=== PATIENT | female | born 2000 | race Caucasian/White ===

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

== ENCOUNTER → 2019-09-22 11:15 | Outpatient (CLI) | payer OTHER, SELFPAY ==
[2019-09-22 11:36] LABS: Basophils % 0.3 % (0.1-2.0); Eosinophils # 0.1 K/mm3 (0.0-0.4); Eosinophils % 1.2 % (0.1-12.0); Hematocrit 40.3 % (37.0-47.0); Hemoglobin 13.1 g/dL (12.2-16.2); Lymphocytes # 2.5 K/mm3 (0.7-4.5); Mean Corpuscular HGB Conc 32.6 g/dL (31.8-35.4); Mean Corpuscular Hemoglobin 27.4 pg (27.0-31.2); Mean Corpuscular Volume 84.1 fl (81-99); Mean Platelet Volume 7.4 fl (7.4-10.4); Monocytes # 0.3 K/mm3 (0.1-1.0); Monocytes % 3.5 % (1.7-9.3); Neutrophils # 5.2 K/mm3 (1.8-7.8); Platelet Count 374 K/mm3 (142-424); Red Blood Count 4.79 M/mm3 (4.20-5.40); Red Cell Distribution Width 14.2 % (11.5-17.5); White Blood Count 8.1 K/mm3 (4.5-13.0)
[2019-09-22 13:02] LABS: Free Thyroxine Index 3.2 ug/dL (5.93-13.13); T4 (Thyroxine) 14.7 ug/dl (5.53-11.0); Triiodothryronine (T3) Uptake 22 % (23.5-40.5)
[2019-09-22 13:15] LABS: Thyroid Stimulating Hormone 3.59 uIU/mL (0.465-4.68)
[2019-09-23 11:29] LABS: Prolactin 8.6 ng/mL (4.8-23.3)
[2019-09-23 13:30] LABS: Estradiol 15.5 pg/mL (.); FSH 2.4 mIU/mL (.); LH 2.9 mIU/mL (.)
[2019-09-25 18:03] LABS: Neisseria gonorrhoeae, NAA Negative (Negative)
== END ==
PROVIDERS: Visit Provider Nurse Practitioner Obstetrics & Gynecology
DX: Z00.00 Encounter for general adult medical examination without abnormal findings (principal); R53.82 Chronic fatigue, unspecified
CPT/HCPCS: 36415; 82670; 83001; 83002; 84146; 84436; 84443; 84479; 85025; 87491; 87591

== ENCOUNTER → 2020-03-01 12:38 | Outpatient (CLI) | payer OTHER, SELFPAY ==
[2020-03-01 13:41] LABS: HCG,Quantitative 1009 mIU/ml (0-5.42)
== END ==
PROVIDERS: Visit Provider Nurse Practitioner Obstetrics & Gynecology
DX: Z32.00 Encounter for pregnancy test, result unknown (principal)
CPT/HCPCS: 36415; 84702

== ENCOUNTER → 2020-03-07 12:12 | Outpatient (CLI) | payer OTHER, SELFPAY ==
[2020-03-07 14:08] LABS: Free Thyroxine Index 2.9 ug/dL (5.93-13.13); T4 (Thyroxine) 12.6 ug/dl (5.53-11.0); Triiodothryronine (T3) Uptake 23 % (23.5-40.5)
[2020-03-07 14:22] LABS: Thyroid Stimulating Hormone 4.05 uIU/mL (0.465-4.68)
[2020-03-07 15:32] LABS: Basophils % 0.3 % (0.1-2.0); Eosinophils # 0.1 K/mm3 (0.0-0.4); Eosinophils % 0.5 % (0.1-12.0); Hematocrit 42.8 % (37.0-47.0); Hemoglobin 13.8 g/dL (12.2-16.2); Lymphocytes # 2.9 K/mm3 (0.7-4.5); Lymphocytes % 22.5 % (10-50); Mean Corpuscular HGB Conc 32.3 g/dL (31.8-35.4); Mean Corpuscular Hemoglobin 27.3 pg (27.0-31.2); Mean Corpuscular Volume 84.6 fl (81-99); Mean Platelet Volume 8.5 fl (7.4-10.4); Monocytes # 0.4 K/mm3 (0.1-1.0); Monocytes % 3.5 % (1.7-9.3); Neutrophils # 9.3 K/mm3 (1.8-7.8); Neutrophils % 73.1 % (37.0-80.0); Platelet Count 452 K/mm3 (142-424); Red Blood Count 5.06 M/mm3 (4.20-5.40); Red Cell Distribution Width 14.7 % (11.5-17.5); White Blood Count 12.7 K/mm3 (4.5-13.0)
[2020-03-09 09:51] LABS: HIV Screen 4th Generation wRfx Non Reactive (Non Reactive); Rubella Antibodies, IgG 2.68 index (Immune >0.99)
[2020-03-09 11:42] LABS: Rapid Plasma Reagin Ab Titer Non Reactive (NonRea<1:1)
[2020-03-09 13:25] LABS: Hepatitis B Surface Antigen Negative (Negative); Hepatitis C Antibody <0.1 s/co ratio (0.0-0.9)
[2020-03-11 07:55] LABS: Neisseria gonorrhoeae, NAA Negative (Negative)
== END ==
PROVIDERS: Visit Provider Nurse Practitioner Obstetrics & Gynecology
DX: Z34.90 Encounter for supervision of normal pregnancy, unspecified, unspecified trimester (principal); E03.9 Hypothyroidism, unspecified
CPT/HCPCS: 36415; 84436; 84443; 84479; 85025; 86592; 86703; 86762; 86850; 87340; 87380; 87491; 87591; G0432

== ENCOUNTER → 2020-03-09 10:26 | Outpatient (CLI) | payer OTHER, SELFPAY ==
--- NOTE | 2020-03-09 10:33 | US_ITS ---
PROCEDURE: US OB <= 14 WEEKS FETUS CLINICAL INDICATION: for dates evaluate dates COMPARISON: US OBBIO US OB biophysical profile from 12/31/2017 FINDINGS: An intrauterine gestational sac is present with a pole with a crown-rump length of 0.33 cm correlating to gestational age of 6 weeks 0 days. heart tones are present with an FHR of 110 BPM. Yolk sac is noted. Unremarkable adnexa IMPRESSION: Live IUP at 6 weeks 0 days. Estimated due date by Ultrasound is 11/02/2020 Dictated by: Bari Finn MD 03/10/2020 13:14 Bari Finn MD in [facility] 03/10/2020 13:14
== END ==
PROVIDERS: PCP Nurse Practitioner Family; Visit Provider Nurse Practitioner Obstetrics & Gynecology
DX: Z34.90 Encounter for supervision of normal pregnancy, unspecified, unspecified trimester (principal)
CPT/HCPCS: 76801

== ENCOUNTER → 2020-04-07 14:49 | Outpatient (CLI) | payer OTHER, SELFPAY | PROVIDERS: PCP Nurse Practitioner Family; Visit Provider Nurse Practitioner Family | DX: Z20.822 Contact with and (suspected) exposure to COVID-19 (principal); Z34.90 Encounter for supervision of normal pregnancy, unspecified, unspecified trimester; Z3A.10 10 weeks gestation of pregnancy | CPT/HCPCS: U0003 ==

== ENCOUNTER → 2020-04-26 11:34 | Outpatient (CLI) | payer OTHER, SELFPAY ==
[2020-04-26 11:58] LABS: Basophils % 0.2 % (0.1-2.0); Eosinophils # 0.1 K/mm3 (0.0-0.4); Eosinophils % 0.5 % (0.1-12.0); Hematocrit 39.8 % (37.0-47.0); Hemoglobin 12.7 g/dL (12.2-16.2); Lymphocytes # 2.6 K/mm3 (0.7-4.5); Lymphocytes % 25.8 % (10-50); Mean Corpuscular HGB Conc 31.8 g/dL (31.8-35.4); Mean Corpuscular Hemoglobin 26.8 pg (27.0-31.2); Mean Corpuscular Volume 84.1 fl (81-99); Mean Platelet Volume 7.9 fl (7.4-10.4); Monocytes # 0.3 K/mm3 (0.1-1.0); Monocytes % 3.2 % (1.7-9.3); Neutrophils # 7.2 K/mm3 (1.8-7.8); Neutrophils % 70.3 % (37.0-80.0); Platelet Count 350 K/mm3 (142-424); Red Blood Count 4.73 M/mm3 (4.20-5.40); Red Cell Distribution Width 13.7 % (11.5-17.5); White Blood Count 10.3 K/mm3 (4.5-13.0)
[2020-04-26 12:44] LABS: Triiodothryronine (T3) Uptake 21 % (23.5-40.5)
[2020-04-26 12:45] LABS: Free Thyroxine Index 3.5 ug/dL (5.93-13.13); T4 (Thyroxine) 16.9 ug/dl (5.53-11.0)
[2020-04-26 12:58] LABS: Thyroid Stimulating Hormone 1.14 uIU/mL (0.465-4.68)
== END ==
PROVIDERS: Visit Provider Nurse Practitioner Obstetrics & Gynecology
DX: O13.9 Gestational [pregnancy-induced] hypertension without significant proteinuria, unspecified trimester (principal); E03.9 Hypothyroidism, unspecified
CPT/HCPCS: 36415; 83880; 84436; 84443; 84479; 85025

== ENCOUNTER → 2020-06-14 10:44 | Outpatient (CLI) | payer OTHER, SELFPAY ==
--- NOTE | 2020-06-14 10:44 | US_ITS ---
PROCEDURE: US OB >= 14 WEEKS FETUS CLINICAL INDICATION: 20 week gestation of Anatomy exam COMPARISON: US US OB <= 14 WEEKS FETUS from 03/09/2020 FINDINGS: There is a single live fetus which is in breech presentation. heart body motion noted. The cervix is closed measuring 4 cm in length. The placenta is anterior in implantation and grade 1. Complete survey performed and was unremarkable on the submitted images as in PACS. No discrete anomalies identified on survey imaging by technologist. Active fetus. Three-vessel cord with satisfactory umbilical cord insertion. 4- chamber heart noted. Survey of brain & ventricles Unremarkable. Face and neck survey unremarkable. Diaphragm and chest views unremarkable. Abdomen: Both kidneys noted and unremarkable. Stomach noted and satisfactory. Spine: Survey of the spine satisfactory with no anomalies identified nor imaged. Both arms and legs noted. Amniotic Fluid: Adequate. Maternal adnexa: No significant findings. Measurements: Average ultrasound age 19weeks 6days. Gestational Age 20weeks Estimated due date by ultrasound age 0911/02/2020. Estimated weight 317g BPD = 20weeks 1day OFD = 20weeks 2days HC = 19weeks 3days AC = 20weeks FL = 19weeks 6days Growth Percentile= 37 percent% Heart Rate = 149bpm Cerebellum = 20weeks 3days Humerus = HC/AC is 1.15 CI is 0.79 FL/BPD is 0.68 FL/AC is 0.22 IMPRESSION: Live IUP in breech presentation with an average ultrasound age of 19 weeks 6 days. No obvious anomalies. Please see above for detail. Dictated by: Bari Finn MD 06/15/2020 09:57 Bari Finn MD in [facility] 06/15/2020 09:57
[2020-06-14 12:33] LABS: Basophils % 0.1 % (0.1-2.0); Eosinophils % 0.3 % (0.1-12.0); Hematocrit 38.8 % (37.0-47.0); Hemoglobin 12.2 g/dL (12.2-16.2); Lymphocytes # 2.6 K/mm3 (0.7-4.5); Lymphocytes % 18.1 % (10-50); Mean Corpuscular HGB Conc 31.5 g/dL (31.8-35.4); Mean Corpuscular Hemoglobin 25.9 pg (27.0-31.2); Mean Corpuscular Volume 82.1 fl (81-99); Mean Platelet Volume 8.2 fl (7.4-10.4); Monocytes # 0.4 K/mm3 (0.1-1.0); Monocytes % 2.9 % (1.7-9.3); Neutrophils # 11.1 K/mm3 (1.8-7.8); Neutrophils % 78.6 % (37.0-80.0); Platelet Count 322 K/mm3 (142-424); Red Blood Count 4.73 M/mm3 (4.20-5.40); Red Cell Distribution Width 13.9 % (11.5-17.5); White Blood Count 14.1 K/mm3 (4.8-10.8)
[2020-06-14 12:38] LABS: D-Dimer 0.84 ug/mL (0.0-0.5)
[2020-06-14 13:10] LABS: Alanine Aminotransferase 10 U/L (12-78); Anion Gap 13.7 mEq/L (5-15); Aspartate Amino Transferase 19 U/L (14-36); Blood Urea Nitrogen 5 mg/dl (7-17); Calcium 9.9 mg/dl (8.4-10.2); Carbon Dioxide 22 mmol/L (22.0-30.0); Chloride 104 mmol/L (98-107); Estimated Glomerular Filt Rate 156 ml/min (>60); GFR (African American) 188 ML/MIN (>60); Glucose 86 mg/dl (74-100); Potassium 4.7 mmoL/L (3.5-5.1); Sodium 135 mmol/L (136-145); Uric Acid 4.5 mg/dl (2.5-6.2)
[2020-06-14 13:23] LABS: Activated Partial Thrombo Time 26.6 seconds (22.8-30.6); Fibrinogen 505 mg/dL (229.9-363.5); INR 0.91 (0.9-1.1); Prothrombin Time 10.8 seconds (10.1-12.5)
== END ==
PROVIDERS: PCP Family Medicine; Visit Provider Nurse Practitioner Obstetrics & Gynecology
DX: Z34.90 Encounter for supervision of normal pregnancy, unspecified, unspecified trimester (principal); Z3A.20 20 weeks gestation of pregnancy
CPT/HCPCS: 36415; 76805; 80048; 84450; 84460; 84550; 85025; 85378; 85384; 85610; 85730

== ENCOUNTER → 2020-06-14 11:50 | Outpatient (CLI) | payer OTHER, SELFPAY | PROVIDERS: Visit Provider Nurse Practitioner Obstetrics & Gynecology | DX: Z34.90 Encounter for supervision of normal pregnancy, unspecified, unspecified trimester (principal) | CPT/HCPCS: 36415; 80048; 84450; 84460; 84550; 85025; 85378; 85384; 85610; 85730 ==

== ENCOUNTER → 2020-06-16 11:04 | Outpatient (CLI) | payer OTHER, SELFPAY ==
[2020-06-16 12:53] LABS: Collection Time,Urine 24 hours; Total Volume,Urine 2400 mL (600-1600)
[2020-06-16 13:21] LABS: Creatinine 24 Hour,Urine 2160 mg/24hr (630-2500); Creatinine,Urine Random 90 mg/dL (Not Estab.); Patient Height,Urine 71 inches; Patient Weight,Urine 350 lbs
[2020-06-16 13:22] LABS: Creatinine Clearance Urine 243.3 mL/min (25-115); Total Protein 24 Hour,Urine 24 mg/24 hr (40-90)
== END ==
PROVIDERS: Visit Provider Nurse Practitioner Obstetrics & Gynecology
DX: O13.9 Gestational [pregnancy-induced] hypertension without significant proteinuria, unspecified trimester (principal)
CPT/HCPCS: 82575; 84155

== ENCOUNTER → 2020-07-14 10:17 | Outpatient (CLI) | payer OTHER, SELFPAY ==
[2020-07-14 10:44] LABS: Basophils % 0.2 % (0.1-2.0); Eosinophils # 0.1 K/mm3 (0.0-0.4); Eosinophils % 0.5 % (0.1-12.0); Hemoglobin 12.7 g/dL (12.2-16.2); Lymphocytes # 2.5 K/mm3 (0.7-4.5); Lymphocytes % 16.9 % (10-50); Mean Corpuscular HGB Conc 32.5 g/dL (31.8-35.4); Mean Corpuscular Hemoglobin 26.7 pg (27.0-31.2); Mean Corpuscular Volume 82.2 fl (81-99); Monocytes # 0.5 K/mm3 (0.1-1.0); Monocytes % 3.1 % (1.7-9.3); Neutrophils % 79.5 % (37.0-80.0); Platelet Count 332 K/mm3 (142-424); Red Blood Count 4.74 M/mm3 (4.20-5.40); Red Cell Distribution Width 14.7 % (11.5-17.5); White Blood Count 15.1 K/mm3 (4.8-10.8)
[2020-07-14 10:53] LABS: MANUAL DIFFERENTIAL MANUAL DIFFERENTIAL (MANUAL DIFF)
[2020-07-14 11:05] LABS: D-Dimer 0.81 ug/mL (0.0-0.5)
[2020-07-14 11:10] LABS: Activated Partial Thrombo Time 25.6 seconds (22.8-30.6); Fibrinogen 505 mg/dL (229.9-363.5); INR 0.87 (0.9-1.1); Prothrombin Time 10.4 seconds (10.1-12.5)
[2020-07-14 11:30] LABS: Potassium 4.6 mmoL/L (3.5-5.1); Sodium 137 mmol/L (136-145)
[2020-07-14 11:31] LABS: Alanine Aminotransferase 12 U/L (12-78); Anion Gap 11.6 mEq/L (5-15); Aspartate Amino Transferase 16 U/L (14-36); Blood Urea Nitrogen 6 mg/dl (7-17); Calcium 9.5 mg/dl (8.4-10.2); Carbon Dioxide 24 mmol/L (22.0-30.0); Chloride 106 mmol/L (98-107); Estimated Glomerular Filt Rate 156 ml/min (>60); GFR (African American) 188 ML/MIN (>60); Glucose 93 mg/dl (74-100); Uric Acid 4.4 mg/dl (2.5-6.2)
[2020-07-14 12:47] LABS: Eosinophils % 2 % (0-3); Lymphocytes % 16 % (10-50); Monocytes % 3 % (2-9); Neutrophils % 76 % (42-76); Total Cells Counted 100
[2020-07-14 12:48] LABS: Microcytosis 1+; Platelet Estimate Normal
== END ==
PROVIDERS: Visit Provider Nurse Practitioner Obstetrics & Gynecology
DX: Z34.90 Encounter for supervision of normal pregnancy, unspecified, unspecified trimester (principal)
CPT/HCPCS: 80048; 84450; 84460; 84550; 85007; 85025; 85378; 85384; 85610; 85730

== ENCOUNTER → 2020-07-16 10:14 | Outpatient (CLI) | payer OTHER, SELFPAY ==
[2020-07-16 13:19] LABS: Collection Time,Urine 24 hours; Total Volume,Urine 2250 mL (600-1600)
[2020-07-16 13:23] LABS: Total Protein 24 Hour,Urine 248 mg/24 hr (40-90)
[2020-07-16 13:25] LABS: Creatinine 24 Hour,Urine 2228 mg/24hr (630-2500); Creatinine,Urine Random 99 mg/dL (Not Estab.)
== END ==
PROVIDERS: Visit Provider Nurse Practitioner Obstetrics & Gynecology
DX: Z34.90 Encounter for supervision of normal pregnancy, unspecified, unspecified trimester (principal)
CPT/HCPCS: 82570; 84155

== ENCOUNTER → 2020-07-22 12:33 | Outpatient (CLI) | payer OTHER, SELFPAY | PROVIDERS: PCP Nurse Practitioner Family; Visit Provider Internal Medicine Cardiovascular Disease | DX: R07.9 Chest pain, unspecified (principal); R06.00 Dyspnea, unspecified; R00.0 Tachycardia, unspecified; R00.2 Palpitations | CPT/HCPCS: 93270 ==

== ENCOUNTER → 2020-08-02 13:33 | Outpatient (CLI) | payer OTHER, SELFPAY ==
--- NOTE | 2020-08-02 13:33 | CA_ITS ---
APPROVED REPORT EXAM: Comprehensive 2D, Doppler, and color-flow Echocardiogram Printer Technician: Nayla Viera CRT Ht: 5 ft 11 in Wt: 360lbs BSA: 2.71 BP: 131/88 mmHg Indications: Chest Pain, Palpitations, Hypertension/HDD, 25 weeks , asthma hx of iv drug use 2D Dimensions LVOT 2.19 cm (M/F) 1.5-2.5 LA Volume 52.30 mL LA Volume Index 19.30 mL/m2 (M/F) 16-34 M-Mode Dimensions RVDd 2.59 cm (0.9-2.6) LA Diam 4.05 cm (1.9-4.0) LVDd 5.35 cm (3.5-5.7) Ao Diam 3.78 cm (2.0-3.7) LVDs 3.93 cm (3.5-5.7) IVSd 1.52 cm (0.6-1.1) PWd 0.95 cm (0.6-1.1) EF (Teich) 51.50% FS 26.50% EDV (Teich) 138.30 mL TAPSE 1.53 (<1.7) ESV (Teich) 67.10 mL LV Diastology E Decel Time 150.00 (160-240 msec) E/A Ratio 0.76 MED E' 3.40 (< 7 cm/sec) MED A' 14.50 cm/s E'/MED E' Ratio 19.41 (>14) LAT E' 13.60 (<10 cm/sec) LAT A' 6.80 cm/s E/LAT E' Ratio 4.85 (>14) Aortic Valve AO Peak GR. 8.20 mmHg Mitral Valve MV E Max Carlos. 66.00 (40-130 cm/s) MV A Velocity 87.00 (40-130 cm/s) E/A Ratio 0.76 MV Decel. Time 150.00 (160-240 ms) MV PHT 44.00 ms Pulmonary Valve PV Peak Velocity 77.00 (50-150 cm/s) Tricuspid Valve TR P. Velocity 214.00 cm/s RAP Estimate 10.00 mmHg RVSP 28.30 mmHg Left Ventricle Left atrium is normal size, left ventricle is normal size, there is no concentric left ventricular hypertrophy, visually estimated ejection fraction 55% with no regional wall motion abnormality, diastolic parameters are inconclusive in the study. Right Ventricle Right atrium and right ventricle are normal size and contractility. Aortic Valve Aortic valve is grossly normal, there is no aortic stenosis or aortic insufficiency. Mitral Valve Mitral valve grossly normal, there is trace mitral regurgitation. Tricuspid Valve Tricuspid grossly normal, there is trace tricuspid regurgitation, tricuspid regurgitation jet close is inadequate for calculation of the right ventricular systolic pressure. Pulmonic Valve Pulmonic valve is poorly visualized. Great Vessels Aortic root is normal size. Pericardium No significant pericardial effusion noted. Conclusion 1. Normal left ventricular size, preserved left ventricular systolic function, visually estimated ejection fraction 55% with no regional wall motion abnormality, diastolic parameters are inconclusive in the study. 2. Trace mitral and tricuspid regurgitation. 3. No significant pericardial effusion noted. Electronically signed by : Pankaj Contreras, 08/02/2020 18:43:21
== END ==
PROVIDERS: PCP Nurse Practitioner Family; Visit Provider Internal Medicine Cardiovascular Disease
DX: R06.00 Dyspnea, unspecified (principal); R07.9 Chest pain, unspecified; R00.0 Tachycardia, unspecified; R00.2 Palpitations
CPT/HCPCS: 93306

== ENCOUNTER → 2020-08-03 11:26 | Outpatient (CLI) | payer OTHER, SELFPAY ==
[2020-08-03 12:17] LABS: Glucose,Fasting 93 mg/dl (74-100)
[2020-08-03 13:31] LABS: Glucose 1 Hour 113 mg/dL (74-100)
== END ==
PROVIDERS: Visit Provider Nurse Practitioner Obstetrics & Gynecology
DX: Z34.90 Encounter for supervision of normal pregnancy, unspecified, unspecified trimester (principal)
CPT/HCPCS: 36415; 82951

== ENCOUNTER 2020-09-09 10:26 | Outpatient (CLI) | payer OTHER, SELFPAY ==
[2020-09-09 10:42] VITALS: BMI 51.2
[2020-09-09 10:45] VITALS: BP 116/77; PULSE 120; RESP 18; TEMP 37; O2SAT 97; BMI 51.2
[2020-09-09 11:19] LABS: Basophils % 0.2 % (0.1-2.0); Eosinophils # 0.1 K/mm3 (0.0-0.4); Eosinophils % 0.9 % (0.1-12.0); Hematocrit 36.2 % (37.0-47.0); Lymphocytes # 2.5 K/mm3 (0.7-4.5); Lymphocytes % 19.3 % (10-50); Mean Corpuscular Hemoglobin 25.7 pg (27.0-31.2); Mean Corpuscular Volume 77.8 fl (81-99); Mean Platelet Volume 8.6 fl (7.4-10.4); Monocytes # 0.4 K/mm3 (0.1-1.0); Neutrophils # 9.9 K/mm3 (1.8-7.8); Neutrophils % 76.6 % (37.0-80.0); Platelet Count 331 K/mm3 (142-424); Red Blood Count 4.66 M/mm3 (4.20-5.40); Red Cell Distribution Width 14.5 % (11.5-17.5)
[2020-09-09 11:25] VITALS: BP 135/74; PULSE 102
[2020-09-09 11:36] LABS: Activated Partial Thrombo Time 25.9 seconds (22.8-30.6); Prothrombin Time 10.5 seconds (10.1-12.5)
[2020-09-09 11:37] LABS: D-Dimer 0.89 ug/mL (0.0-0.5)
[2020-09-09 11:38] LABS: INR 0.88 (0.9-1.1)
[2020-09-09 11:45] VITALS: BP 138/69; PULSE 93
[2020-09-09 11:54] LABS: Fibrinogen 500 mg/dL (208.1-352.0)
[2020-09-09 12:38] LABS: Alanine Aminotransferase 14 U/L (12-78); Anion Gap 14.1 mEq/L (5-15); Aspartate Amino Transferase 28 U/L (14-36); Blood Urea Nitrogen 6 mg/dl (7-17); Calcium 8.7 mg/dl (8.4-10.2); Carbon Dioxide 21 mmol/L (22.0-30.0); Chloride 105 mmol/L (98-107); Creatinine Clearance Estimated 249 mL/min (50-200); Estimated Glomerular Filt Rate 201 ml/min (>60); GFR (African American) 244 ML/MIN (>60); Glucose 88 mg/dl (74-100); Potassium 4.1 mmoL/L (3.5-5.1); Sodium 136 mmol/L (136-145); Uric Acid 4.6 mg/dl (2.5-6.2)
== END 2020-09-09 12:55 | disposition home or self-care (01) ==
LOC: OBOUT 10:27 → OB 10:27
PROVIDERS: PCP Nurse Practitioner Family; Visit Provider Nurse Practitioner Obstetrics & Gynecology
DX: O47.03 False labor before 37 completed weeks of gestation, third trimester (principal); Z3A.32 32 weeks gestation of pregnancy
CPT/HCPCS: 59025; 80048; 84450; 84460; 84550; 85025; 85378; 85384; 85610; 85730; G0463

== ENCOUNTER 2020-09-21 09:05 | Outpatient (CLI) | payer OTHER, SELFPAY ==
[2020-09-21 09:34] VITALS: BP 114/54; PULSE 106; RESP 20; TEMP 37; O2SAT 97; BMI 51.4
== END 2020-09-21 09:52 | disposition home or self-care (01) ==
LOC: OB 09:42 → OBOUT 09-22 12:17
PROVIDERS: PCP Nurse Practitioner Family; Visit Provider Nurse Practitioner Obstetrics & Gynecology
DX: O13.9 Gestational [pregnancy-induced] hypertension without significant proteinuria, unspecified trimester (principal); Z3A.34 34 weeks gestation of pregnancy
CPT/HCPCS: 59025; G0378; G0463

== ENCOUNTER 2020-09-26 12:59 | Outpatient (CLI) | payer OTHER, SELFPAY ==
[2020-09-26 13:10] VITALS: BP 131/85; PULSE 96; RESP 20; TEMP 37.3; O2SAT 98; BMI 51.4
[2020-09-26 13:27] VITALS: BMI 51.4
--- NOTE | 2020-09-26 13:33 | ECG_ITS ---
APPROVED REPORT Exam: Resting ECG HR:102 bpm ECG Measurements Heart Rate 102 AXES IL 142 P 55 QRSd 80 QRS 62 QT 356 T 29 QTc 463 Conclusion Sinus tachycardia with occasional premature ventricular complexes Otherwise normal ECG Electronically signed by : Roberto Henderson, 09/27/2020 17:02:32
[2020-09-26 13:35] LABS: Basophils % 0.2 % (0.1-2.0); Eosinophils # 0.1 K/mm3 (0.0-0.4); Eosinophils % 0.4 % (0.1-12.0); Hematocrit 38.1 % (37.0-47.0); Hemoglobin 12.1 g/dL (12.2-16.2); Lymphocytes # 2.2 K/mm3 (0.7-4.5); Lymphocytes % 15.6 % (10-50); Mean Corpuscular HGB Conc 31.7 g/dL (31.8-35.4); Mean Corpuscular Hemoglobin 25.1 pg (27.0-31.2); Mean Corpuscular Volume 79.2 fl (81-99); Mean Platelet Volume 8.1 fl (7.4-10.4); Monocytes # 0.4 K/mm3 (0.1-1.0); Monocytes % 3.2 % (1.7-9.3); Neutrophils # 11.2 K/mm3 (1.8-7.8); Neutrophils % 80.5 % (37.0-80.0); Platelet Count 341 K/mm3 (142-424); Red Blood Count 4.81 M/mm3 (4.20-5.40); Red Cell Distribution Width 14.1 % (11.5-17.5); White Blood Count 13.9 K/mm3 (4.8-10.8)
[2020-09-26 13:44] LABS: Activated Partial Thrombo Time 26.5 seconds (22.8-30.6); INR 0.88 (0.9-1.1); Prothrombin Time 10.5 seconds (10.1-12.5)
[2020-09-26 13:48] LABS: Anion Gap 10.6 mEq/L (5-15); Carbon Dioxide 23 mmol/L (22.0-30.0); Chloride 106 mmol/L (98-107); Potassium 4.6 mmoL/L (3.5-5.1); Sodium 135 mmol/L (136-145)
[2020-09-26 13:49] LABS: Alanine Aminotransferase 14 U/L (12-78); Aspartate Amino Transferase 24 U/L (14-36); Blood Urea Nitrogen 7 mg/dl (7-17); Calcium 9.1 mg/dl (8.4-10.2); Creatinine Clearance Estimated 249 mL/min (50-200); Estimated Glomerular Filt Rate 201 ml/min (>60); GFR (African American) 244 ML/MIN (>60); Glucose 82 mg/dl (74-100)
[2020-09-26 13:56] LABS: D-Dimer 0.61 ug/mL (0.0-0.5)
[2020-09-26 14:30] LABS: Fibrinogen 635 mg/dL (229.9-363.5)
== END 2020-09-26 14:20 | disposition home or self-care (01) ==
LOC: OBOUT 13:03 → OB 13:05
PROVIDERS: PCP Nurse Practitioner Family; Visit Provider Nurse Practitioner Obstetrics & Gynecology
DX: O13.2 Gestational [pregnancy-induced] hypertension without significant proteinuria, second trimester (principal); Z3A.34 34 weeks gestation of pregnancy
CPT/HCPCS: 59025; 80048; 84450; 84460; 84550; 85025; 85378; 85384; 85610; 85730; 93005; G0463

== ENCOUNTER → 2020-09-30 14:30 | Outpatient (CLI) | payer OTHER, SELFPAY | PROVIDERS: Visit Provider Nurse Practitioner Obstetrics & Gynecology | DX: Z34.90 Encounter for supervision of normal pregnancy, unspecified, unspecified trimester (principal) | CPT/HCPCS: 86403; 87186 ==

== ENCOUNTER → 2020-10-04 10:32 | Outpatient (CLI) | payer OTHER, SELFPAY ==
--- NOTE | 2020-10-04 | ECG_ITS ---
APPROVED REPORT Exam: Resting ECG HR:130 bpm ECG Measurements Heart Rate 130 AXES NJ 130 P 66 QRSd 80 QRS 65 QT 304 T 55 QTc 447 Conclusion Sinus tachycardia with occasional premature ventricular complexes and fusion complexes Otherwise normal ECG Electronically signed by : Roberto Henderson MD 10/07/2020 11:41:33
== END ==
PROVIDERS: PCP Nurse Practitioner Family; Visit Provider Nurse Practitioner Obstetrics & Gynecology
DX: Z01.810 Encounter for preprocedural cardiovascular examination (principal)
CPT/HCPCS: 93005

== ENCOUNTER 2020-10-10 04:37 | Inpatient (IN) | payer OTHER, SELFPAY ==
[2020-10-10 04:51] VITALS: BMI 51.8
[2020-10-10 05:51] LABS: Coronavirus 19, PCR Not Detected (NotDetected); Influenza A, PCR Not Detected (NotDetected); Influenza B, PCR Not Detected (NotDetected); Microscopic, Urine URINE MICROSCOPIC (MICROSCOPIC)
[2020-10-10 06:07] LABS: Basophils # 0.1 K/mm3 (0-0.2); Basophils % 0.8 % (0.1-2.0); Eosinophils # 0.1 K/mm3 (0.0-0.4); Eosinophils % 0.8 % (0.1-12.0); Hematocrit 33.9 % (37.0-47.0); Hemoglobin 11.2 g/dL (12.2-16.2); Lymphocytes # 3.7 K/mm3 (0.7-4.5); Lymphocytes % 27.4 % (10-50); Mean Corpuscular HGB Conc 33.2 g/dL (31.8-35.4); Mean Corpuscular Hemoglobin 25.6 pg (27.0-31.2); Mean Corpuscular Volume 77.2 fl (81-99); Mean Platelet Volume 8.9 fl (7.4-10.4); Monocytes # 0.5 K/mm3 (0.1-1.0); Platelet Count 326 K/mm3 (142-424); Red Blood Count 4.39 M/mm3 (4.20-5.40); Red Cell Distribution Width 15.3 % (11.5-17.5); White Blood Count 13.5 K/mm3 (4.8-10.8)
[2020-10-10 06:09] LABS: Appearance,Urine CLEAR (Clear); Bilirubin,Urine Negative (Negative); Blood, Urine Negative (Negative); Color,Urine YELLOW (Yellow); Glucose,Urine (UA) Negative (Negative); Ketones,Urine Negative (Negative); Leukocyte Esterase,Urine Negative (Negative); Nitrate,Urine Negative (Negative); PH,Urine 6.5 (5.0-8.5); Protein,Urine Negative (Negative); Urobilinogen,Urine 0.2 EU/dl (0.2)
[2020-10-10 06:21] LABS: Benzodiazepines Screen,Urine Negative ng/ml (<200)
[2020-10-10 06:22] LABS: Amphetamine/Metha Screen,Urine Negative ng/ml (<1000)
[2020-10-10 06:23] LABS: Barbiturates Screen,Urine Negative ng/ml (<200); Cannabinoid Screen,Urine Negative ng/ml (<50)
[2020-10-10 06:24] LABS: Cocaine Screen,Urine Negative ng/ml (<300); Methadone Screen,Urine Negative ng/ml (<300)
[2020-10-10 06:25] LABS: Opiate Screen,Urine Negative ng/ml (<300)
[2020-10-10 06:26] LABS: Phencyclidine Screen,Urine Negative ng/ml (<25)
[2020-10-10 06:27] VITALS: BP 90/57; PULSE 122; RESP 20; TEMP 37.1; O2SAT 98; BMI 51.8
[2020-10-10 06:27] LABS: Calcium Oxalate Crystals,Urine 1+ /lpf
[2020-10-10 06:28] LABS: Squamous Epithelial Cell,Urine Occasional #/hpf (0-5); WBC,Urine Occasional #/hpf (0-3)
--- NOTE | 2020-10-10 07:15 | HMH.PHAINT ---
MEDICATION RECONCILIATION COMPLETED ON PATIENT USING EXTERNAL FILL HISTORY FROM PHARMACY AND LIST FROM DR. FLORES'S OFFICE. -DANAY WHITE, JANICED
--- NOTE | 2020-10-10 07:59 | HMH.PHACONS ---
- Pharmacy Consult Date: 10/10/20 Time: 07:59 Referring provider: DR. FLORES Reason for Consult:: VANCOMYCIN DOSING Allergies and ADEs:: Allergies Allergy/AdvReac Type Severity Reaction Status Date / Time amoxicillin Allergy Unknown Verified 10/07/20 12:15 cefaclor Allergy Unknown Verified 10/07/20 12:15 Penicillins Allergy Unknown Verified 10/07/20 12:15 Home Medications:: Home Medications Medication Instructions Recorded Confirmed Type vits no.130-ferrous fum 1 tab PO DAILY tab 07/22/20 10/10/20 History 27 mg iron-folic acid 800 mcg tablet Ferrous Sulfate 325 mg PO DAILY 09/09/20 10/10/20 History Labetalol HCl 400 mg PO BID 09/09/20 10/10/20 History nifedipine 90 mg tablet,extended 90 mg PO DAILY tab 09/16/20 10/10/20 History release 24 hr Height: 1.8 m Weight: 168.736 kg Laboratory Results:: Laboratory Results - last 24 hr 10/10/20 05:00: WBC 13.5 H, RBC 4.39, Hgb 11.2 L, Hct 33.9 L, MCV 77.2 L, MCH 25.6 L, MCHC 33.2, RDW 15.3, Plt Count 326, MPV 8.9, Neut % (Auto) 67.0, Lymph % (Auto) 27.4, [place] % (Auto) 4.0, Eos % (Auto) 0.8, Baso % (Auto) 0.8, Neut # (Auto) 9.0 H, Lymph # (Auto) 3.7, [place] # (Auto) 0.5, Eos # (Auto) 0.1, Baso # (Auto) 0.1 10/10/20 05:00: Urine Color Yellow, Urine Appearance Clear, Urine pH 6.5, Ur Specific [place] 1.020, Urine Protein Negative, Urine Glucose (UA) Negative, Urine Ketones Negative, Urine Blood Negative, Urine Nitrate Negative, Urine Bilirubin Negative, Urine Urobilinogen 0.2, Ur Leukocyte Esterase Negative, Urine RBC None, Urine WBC Occasional, Ur Squamous Epith Cells Occasional, Calcium Oxalate Crystal 1+, Urine Bacteria None 10/10/20 05:00: Urine Opiates Screen Negative, Urine Methadone Screen Negative, Ur Barbituates Screen Negative, Ur Phencyclidine Scrn Negative, Ur Amphetamines Screen Negative, U Benzodiazepines Scrn Negative, Urine Cocaine Screen Negative, U Marijuana (THC) Screen Negative 10/10/20 05:00: Blood Type A Positive, Antibody Screen Negative 10/10/20 05:00: SARS-CoV-2 (PCR) Not detected, Influenza A Untype (PCR) Not detected, Influenza Type B (PCR) Not detected Medical History: Reports:: Anxiety, Asthma, Depression, Hypertension, Palpitations Denies:: Diabetes Mellitus Type 1, Seizures Assessment and Plan - Assessment and plan all Dx Assessment and Plan for all problems:: Age: 20 yo Serum creatinine: 0.6 mg/dL Height: 70.9 Inches Weight (kg): 168.7 Assessment: IBW (kg): 70.57 Dosing wt(kg): 168.7 Estimated Creatinine clearance (ml/min): 130 Clearance limited to 130 ml/min to reduce risk of overdosing. CRCL method: Cockcroft and Gault using ibw(default). Drug selected: Vancomycin Loading dose (mg): 0 Vd (liters): 135.0 (factor used: 0.8 L/kg) Koby (hr-1): 0.112 Half life (hrs): 6.19 Recommended dose: 2500 mg Interval: 8 hrs Infusion time (hrs): 2.0 Predicted peak (mcg/mL): 28.0 Predicted trough (mcg/mL): 14.30 Total body weight is being used for vancomycin dosing. Recommendations: Give Vancomycin 2500 mg q 8 hrs with an expected Cpeak of 28.0 mcg/ml and an expected Ctrough of 14.30 mcg/ml ----Vanco only - ignore for aminoglycosides----- CLvanco= 15.12 L/hr AUC 0-24 /SHARMILA Data: SHARMILA 0.5 mcg/mL: AUC/SHARMILA: 992.1 SHARMILA 1.0 mcg/mL: AUC/SHARMILA: 496.0 --------- SHARMILA 1.5 mcg/mL: AUC/SHARMILA: 330.7 SHARMILA 2.0 mcg/mL: AUC/SHARMILA: 248.0 Thank you for the consult, will continue to follow.
[2020-10-10 08:00] VITALS: BP 127/70; PULSE 105; RESP 18; TEMP 37.2; O2SAT 99
--- NOTE | 2020-10-10 09:50 | HMH.LABNOT ---
Labor Note - Subjective: Date: 10/10/20 Time: 09:50 regular contraction - Objective: NST:: Reactive Contractions:: every 2-3 minutes Cervical Dilation:: 3 Effacement:: 75% Station: -3 Membranes: artificially ruptured - Fetus: Monitoring?: Yes monitoring type:: Internal Comment:: I inserted an IUPC as well as a scalp clip. - Assessment: Labor progressing?: Yes Cephalopelvic disproportion?: No Patient Problems: All Active Problems (Last Updated 09/30/20 @ 09:41 by MANSI Rosas) Chronic hypertension affecting (Acute) Dyspnea (Chronic) Chest pain (Acute) Palpitations (Chronic) Tachycardia (Chronic) High blood pressure affecting in third trimester, antepartum (Chronic) induced hypertension, antepartum (Acute) Abdominal pain (Acute) Asthma complicating , antepartum (Chronic) Obesity, morbid, BMI 40.0-49.9 (Chronic) Intrauterine in teenager (Chronic) (Chronic) - Plan: Anesthesia for epidural?: Yes Continue to labor down?: Yes Plan for ?: No Continue to monitor?: Yes Start pushing?: No
--- NOTE | 2020-10-10 10:10 | HMH.OBAPHP ---
OB - H&P: HPI Antepartum - History of Present Illness Chief complaint: Chronic hypertension, morbid obesity, small for gestational age History of present illness: She is a 20-year-old 2 para 1 at 37 weeks gestational age. She is been followed by ms and [facility] high risk for a small for gestational age . She also has difficult to control chronic hypertension. We have had to increase the medication recently. We have now stabilized her blood pressure. As result of the small for gestational age and chronic hypertension we are delivering her at 37 weeks. - History of Present Criteria for establishing EDC:: LMP confirmed by 1st trimester US care: good care Ultrasounds: normal 1st trimester US, normal mid trimester US Obstetrical complications: gestational hypertension, growth restriction - Labs Rubella: immune RPR/VDRL: nonreactive GBS status: positive HBsAG: negative [facility] History I have reviewed the patient's past medical history: Yes Medical History: Reports:: Anxiety, Asthma, Depression, Hypertension, Palpitations Denies:: Diabetes Mellitus Type 1, Seizures *Have you ever received a pneumonia vaccine?: No *Have you received a flu vaccine this season?: No Other Medical History: Reports: Hypothyroidism Laterality Cases: Bilateral: Tonsillectomy Other Surgeries: Yes: No Previous Surgery. No: Amputation: No Fractures: No - *Social History Smoking Status: Never smoker Alcohol Intake: never Alcohol Intake Frequency:: other Substance Use Type: denies use, former substance user, heroin, IV drugs *Occupational Status:: unemployed Housing: house Household Members: family *Travel in the last 8 weeks: None - Psychiatric History Pschychiatric History:: Reports:: Anxiety, Depression Family Hx:: Hypertension, Substance abuse Para: 1 Review of Systems - Review of Systems Review of systems:: pertinent systems reviewed and negative unless documented below Meds Home Medications Medication Instructions Recorded Confirmed Type vits no.130-ferrous fum 1 tab PO DAILY tab 07/22/20 10/10/20 History 27 mg iron-folic acid 800 mcg tablet Ferrous Sulfate 325 mg PO DAILY 09/09/20 10/10/20 History Labetalol HCl 400 mg PO BID 09/09/20 10/10/20 History nifedipine 90 mg tablet,extended 90 mg PO DAILY tab 09/16/20 10/10/20 History release 24 hr Allergies Allergy/AdvReac Type Severity Reaction Status Date / Time amoxicillin Allergy Unknown Verified 10/07/20 12:15 cefaclor Allergy Unknown Verified 10/07/20 12:15 Penicillins Allergy Unknown Verified 10/07/20 12:15 OB - H&P: Exam - Physical Exam Vital signs: Temp Pulse Resp BP Pulse Ox 98.9 F 105 H 18 127/70 99 10/10/20 08:00 10/10/20 08:00 10/10/20 08:00 10/10/20 08:00 10/10/20 08:00 - Constitutional no acute distress - Routine HEENT Exam Head: Present: normocephalic Eye: Present: EOMI, PERRL ENT: Present: mucous membranes moist - Routine Neck Exam Present: supple, full ROM - Routine Respiratory Exam Absent: accessory muscle use (good air entry bilaterally), respiratory distress, wheezes, crackles - Routine Cardiovascular Exam Present: RRR. Absent: murmur - Routine Abdominal Exam Present: soft, normoactive bowel sounds. Absent: tenderness, distended, guarding - Routine Rectal Exam Patient deferred: visual exam, digital exam - Routine Exam Patient deferred: external exam, groin exam, perineal exam - Routine Extremities Exam Present: full ROM. Absent: cyanosis, edema - Routine Skin Exam Present: intact. Absent: cyanosis - Routine Neurological Exam Present: alert, oriented X3 - Routine Psychiatric Exam Present: normal affect OB - Results - Labs Labs: Short CBC 10/10/20 Range/Units 05:00 WBC 13.5 H (4.8-10.8) K/mm3 Hgb 11.2 L (12.2-16.2) g/dL Hct 33.9 L (37.0-47.0) % Plt Count 326 (142-424) K/mm3 Urin
--- NOTE | 2020-10-10 10:51 | HMH.ANESCL ---
[facility] Anesthesia Checklist - Patient Identification Patient Identification: Arm Band - Structural Data Admitted From: Inpatient Planned Operative Procedure/s: labor epidural Consent for Planned Operative Procedure(s) Verified: Yes Verified Documents: Surgical Consent, History and Physical - NPO Status Verified Time NPO: 00:00 - Additional verifications Anesthesia Reactions: No - Airway Assessment C-Spine Mobility Assessed: Yes TMJ Mobility Assessed: Yes Dentition: Good Dentition - Neurological Assessment Level of Consciousness: Awake, Alert - Anesthesia Plan Anesthesia Risk discussed: Yes Anesthesia Plan: Verified ASA Class: III Anesthesia Type: Epidural [facility] History I have reviewed the patient's past medical history: Yes Medical History: Reports:: Anxiety, Asthma, Depression, Hypertension, Palpitations Denies:: Diabetes Mellitus Type 1, Seizures *Have you ever received a pneumonia vaccine?: No *Have you received a flu vaccine this season?: No Other Medical History: Reports: Hypothyroidism Anesthesia experience/problems:: nac Laterality Cases: Bilateral: Tonsillectomy Other Surgeries: No: Amputation: No Fractures: No - *Social History Smoking Status: Never smoker Alcohol Intake: never Alcohol Intake Frequency:: other Substance Use Type: denies use, former substance user, heroin, IV drugs *Occupational Status:: unemployed Housing: house Household Members: family *Travel in the last 8 weeks: None - Psychiatric History Pschychiatric History:: Reports:: Anxiety, Depression Family Hx:: Hypertension, Substance abuse Para: 1
--- NOTE | 2020-10-10 11:44 | HMH.LABNOT ---
Labor Note - Subjective: Date: 10/10/20 Time: 11:15 regular contraction - Objective: NST:: Reactive Contractions:: every 2-3 minutes Cervical Dilation:: 4 Effacement:: 90% Station: -1 Membranes: artificially ruptured - Fetus: Monitoring?: Yes monitoring type:: Internal - Assessment: Labor progressing?: Yes Cephalopelvic disproportion?: No Patient Problems: All Active Problems (Last Updated 09/30/20 @ 09:41 by MANSI Rosas) IUGR (intrauterine growth restriction) affecting care of mother (Acute) Chronic hypertension affecting (Acute) Dyspnea (Chronic) Chest pain (Acute) Palpitations (Chronic) Tachycardia (Chronic) High blood pressure affecting in third trimester, antepartum (Chronic) induced hypertension, antepartum (Acute) Abdominal pain (Acute) Asthma complicating , antepartum (Chronic) Obesity, morbid, BMI 40.0-49.9 (Chronic) Intrauterine in teenager (Chronic) (Chronic) - Plan: Anesthesia for epidural?: Yes Continue to labor down?: Yes Plan for ?: No Continue to monitor?: Yes Start pushing?: No Additional information:: She continues to do well. She has changed her cervix. She has internal monitors. We'll expect a vaginal delivery.
[2020-10-10 12:29] VITALS: BP 114/62; PULSE 102; RESP 16; TEMP 36.9
--- NOTE | 2020-10-10 13:04 | HMH.LABNOT ---
Labor Note - Subjective: Date: 10/10/20 Time: 13:04 regular contraction - Objective: NST:: Reactive Contractions:: every 2-3 minutes Cervical Dilation:: 5 Effacement:: 100% Station: -1 Membranes: artificially ruptured - Fetus: Monitoring?: Yes monitoring type:: Internal - Assessment: Labor progressing?: Yes Cephalopelvic disproportion?: No Patient Problems: All Active Problems (Last Updated 09/30/20 @ 09:41 by MANSI Rosas) IUGR (intrauterine growth restriction) affecting care of mother (Acute) Chronic hypertension affecting (Acute) Dyspnea (Chronic) Chest pain (Acute) Palpitations (Chronic) Tachycardia (Chronic) High blood pressure affecting in third trimester, antepartum (Chronic) induced hypertension, antepartum (Acute) Abdominal pain (Acute) Asthma complicating , antepartum (Chronic) Obesity, morbid, BMI 40.0-49.9 (Chronic) Intrauterine in teenager (Chronic) (Chronic) - Plan: Anesthesia for epidural?: Yes Continue to labor down?: Yes Plan for ?: No Continue to monitor?: Yes
--- NOTE | 2020-10-10 13:52 | HMH.DN ---
- Delivery Note Delivery Date:: 10/10/20 Delivery Time:: 13:37 Anesthesia Type: Epidural Was labor medically induced?: Yes Induction method: per pitocin protocol Gestational age (weeks): 37 delivered prior to 39 weeks?: Yes Justification for early elective delivery:: Gestational Hypertension, IUGR Gender: Female at 1 minute: 8 at 5 minutes: 9 Delivery Procedure:: She is a 20-year-old 2 para 1 at 37 weeks gestational age. She has been followed for chronic hypertension and a small for gestational age . She has had increasing requirements for her antihypertensive. As result of that she was offered delivery at 37 weeks as recommended by [facility] in consultation. She was started on IV oxytocin had her membranes ruptured. Under labor epidural progressed to full dilation and delivered spontaneously a liveborn female child at 1:37 PM in the afternoon of October 10, 2020. On deliver the head it was noted that there was a loose nuchal cord this was followed by deliver the anterior shoulder and the rest 's body atraumatically. The nurses obtained cord blood as well as cord pH. I arrived shortly after delivery of the fetus and was able to deliver the placenta. She received IV oxytocin using gentle traction on the cord and countertraction on the fundus I was able to easily deliver the placenta intact. There were no perineal or vaginal lacerations. She has a positive blood, she is rubella immune and was group B streptococcus positive. She was allergic to penicillin and the group B strep was in sensitive to clindamycin. As result of that she received IV vancomycin. Her estimated blood loss was approximately 200 cc. Placental Delivery Description: Spontaneous
[2020-10-10 14:36] LABS: Cord Blood PH 7.38 (7.35-7.45)
[2020-10-10 15:54] VITALS: BP 135/63; PULSE 85; RESP 18; TEMP 37.2; O2SAT 99
[2020-10-11 06:02] LABS: Hematocrit 31.1 % (37.0-47.0); Hemoglobin 10.1 g/dL (12.2-16.2)
[2020-10-11 08:08] VITALS: BP 129/69; PULSE 88; RESP 16; TEMP 37.2; O2SAT 98
--- NOTE | 2020-10-11 09:42 | P.PN_ITS ---
Internal Medicine - PN: Subj *Date: 10/11/20 *Time: 09:42 Interval history: She continues to do very well. She is eating and drinking and ambulating. She is breast-feeding. Her lochia is normal. Her blood pressures are normal at this point in time. Exam Vital signs and Labs for Last 24 Hours: Temp Pulse Resp BP Pulse Ox 98.9 F 88 16 129/69 98 10/11/20 08:08 10/11/20 08:08 10/11/20 08:08 10/11/20 08:08 10/11/20 08:08 Laboratory Results - last 24 hr 10/10/20 14:10: Cord ABG pH 7.38 10/11/20 05:38: Hgb 10.1 L, Hct 31.1 L I & O for Last 24 hours: Intake & Output 10/08/20 10/09/20 10/10/20 10/11/20 11:59 11:59 11:59 11:59 Weight 372 lb - Constitutional no acute distress - *Routine HEENT Exam Head: Present: normocephalic Eye: Present: EOMI, PERRL ENT: Present: mucous membranes moist Assessment and Plan (1) IUGR (intrauterine growth restriction) affecting care of mother Status: Acute Category: Medical Code(s): O36.5990 - Maternal care for other known or suspected poor growth, unspecified trimester, not applicable or unspecified (2) Chronic hypertension affecting Status: Acute Category: Medical Code(s): O10.919 - Unspecified pre-existing hypertension complicating , unspecified trimester (3) induced hypertension, antepartum Status: Acute Category: Medical Code(s): O13.9 - Gestational [- induced] hypertension without significant proteinuria, unspecified trimester (4) Obesity, morbid, BMI 40.0-49.9 Status: Chronic Category: Medical Code(s): E66.01 - Morbid (severe) obesity due to excess calories - Assessment and plan all Dx Assessment and Plan for all problems:: She is doing well this morning. We will plan to send her home tomorrow.
[2020-10-11 12:30] VITALS: BP 119/77; PULSE 80; RESP 16; TEMP 36.7; O2SAT 98
--- NOTE | 2020-10-11 13:31 | SW/DCPLANNER ---
I received referral regarding: former drug use for this patient. did NOT test positive during this . Patient delivered female (Akila Pierre) yesterday 10/11/2020. Infants father (Endy Siegel 12/30/81) is involved and was present at the time of my visit. Patient, Endy, infant, other child (Rylee Pierre 01/15/18), patients father/grandmother (Louis and Hanane Pierre) and patients two sisters (Jennifer/Ellen Blanc) will all reside at [address] [place] [address]. Patients contact number is [phone]. Patient has NOT had any past Social Service involvement. Patient is currently established with WIC and is not interested in HANDS. Patient stated that she has everything she needs at home including: crib, carseat, clothing, diapers and will be breast feeding. Patient/ are planned to discharge home tomorrow pending no setbacks. Patients nurse (Ellen) stated that patient and father are appropriate with .
[2020-10-11 16:18] VITALS: BP 144/88; PULSE 82; RESP 17; TEMP 36.8; O2SAT 98
[2020-10-11 17:19] VITALS: BP 135/83; PULSE 83
--- NOTE | 2020-10-12 10:13 | HMH.OBDCSM ---
General - General Admission date:: 10/10/20 Discharge date: 10/12/20 HPI - History of Present Illness History of present illness: She is a 20-year-old 2 para 1 at 37 weeks gestational age. She had increasing blood pressure that was difficult to control, morbid obesity and a small for gestational age infant. As result of that she was offered induction of labor at term. Hospital Course Hospital Course: She was started on IV oxytocin had her membranes ruptured. Under labor epidural progressed to full dilation and delivered spontaneously a liveborn female child on October. Baby weighed 6 pounds 1 ounce and was 18-1/2 inches long. She had Apgars of 8 at 1 minute and 9 at 5 minutes. She has done well and has remained afebrile with her hospitalization. She is eating, drinking and ambulating. She is breast-feeding. Her lochia is normal. She has a positive blood, she is rubella immune and was group B streptococcus positive that was insensitive to clindamycin. She had an allergy to penicillin. She received IV vancomycin while in labor. She was discharged home to follow-up with me in approximately 2 weeks time. She will continue on with her vitamins and iron. Her blood pressures have been normal on no antihypertensives. She has a blood pressure monitor at home and will monitor her blood pressure twice daily. She will let me know if her blood pressures are more than 140/90. She was given the usual instructions with respect to limiting her activity, driving and sexual activity. Her condition on discharge is stable and improved. Rhogam Administration: Not Indicated Objective Vital signs: Temp Pulse Resp BP Pulse Ox 98.2 F 83 17 135/83 98 10/11/20 16:18 10/11/20 17:19 10/11/20 16:18 10/11/20 17:19 10/11/20 16:18 no acute distress - *Routine HEENT Exam Head: Present: normocephalic Eye: Present: EOMI, PERRL ENT: Present: mucous membranes moist DS: Diagnosis - Discharge Diagnosis (1) IUGR (intrauterine growth restriction) affecting care of mother Status: Acute (2) Chronic hypertension affecting Status: Acute (3) induced hypertension, antepartum Status: Acute (4) Obesity, morbid, BMI 40.0-49.9 Status: Chronic Discharge Plan - Patient Discharge Instructions ACTIVITY: No heavy lifting DIET: continue same diet Additional Instructions: No heavy lifting/strenuous activity until cleared by MD. Nothing in the vagina for 6 weeks. Follow up with MD as scheduled. Patient Instructions: Depression, Hemorrhage, DI for Labor and Delivery, Vaginal , DI for Pre-eclampsia, [facility] Post Discharge Instructions, Preventing the Spread of Coronavirus Discharge Instructions - Follow up Plan Follow up with: Bowen Page MD [Staff Physician] - 10/25/20 10:30 am Disposition: Home, Self-Care Condition at discharge:: Stable Home Medications: Home Medications Medication Instructions Recorded Confirmed Type vits no.130-ferrous fum 1 tab PO DAILY tab 07/22/20 10/10/20 History 27 mg iron-folic acid 800 mcg tablet Ferrous Sulfate 325 mg PO DAILY 09/09/20 10/10/20 History Labetalol HCl 400 mg PO BID 09/09/20 10/10/20 History nifedipine 90 mg tablet,extended 90 mg PO DAILY tab 09/16/20 10/10/20 History release 24 hr Prescriptions/Medication Reconciliation: Continued vits no.130-ferrous fum 27 mg iron-folic acid 800 mcg tablet 1 tab PO DAILY tab Ferrous Sulfate 325 mg PO DAILY Discontinued nifedipine 90 mg tablet,extended release 24 hr 90 mg PO DAILY tab Labetalol HCl 400 mg PO BID - Problem Reconciliation Problems Reviewed?: Yes
== END 2020-10-12 11:55 | disposition home or self-care (01) | DRG 806 ==
PROVIDERS: Admitting Provider Nurse Practitioner Obstetrics & Gynecology; PCP Nurse Practitioner Family; Visit Provider Nurse Practitioner Obstetrics & Gynecology
DX: O36.5930 Maternal care for other known or suspected poor fetal growth, third trimester, not applicable or unspecified (principal); O10.013 Pre-existing essential hypertension complicating pregnancy, third trimester; Z37.0 Single live birth; Z3A.37 37 weeks gestation of pregnancy; O69.81X0 Labor and delivery complicated by cord around neck, without compression, not applicable or unspecified
CPT/HCPCS: 59409; 36415; 59025; 80305; 81001; 82800; 85014; 85018; 85025; 86850; 94761; C1758; G0283; J3370; U0003

== ENCOUNTER → 2021-03-27 16:38 | Outpatient (CLI) | payer OTHER, SELFPAY | PROVIDERS: Visit Provider Nurse Practitioner | DX: Z20.822 Contact with and (suspected) exposure to COVID-19 (principal) | CPT/HCPCS: C9803; U0003; U0005 ==

== ENCOUNTER → 2021-03-28 17:11 | Outpatient (CLI) | payer OTHER, SELFPAY | PROVIDERS: PCP Nurse Practitioner Family; Visit Provider Nurse Practitioner | DX: Z20.822 Contact with and (suspected) exposure to COVID-19 (principal) | CPT/HCPCS: C9803; U0003; U0005 ==

== ENCOUNTER → 2021-04-12 17:22 | Outpatient (CLI) | payer OTHER, SELFPAY | PROVIDERS: PCP Nurse Practitioner Family; Visit Provider Nurse Practitioner | DX: U07.1 COVID-19 (principal) | CPT/HCPCS: C9803; U0003; U0005 ==

== ENCOUNTER → 2021-05-09 18:38 | Outpatient (CLI) | payer OTHER, SELFPAY | PROVIDERS: PCP Nurse Practitioner Family; Visit Provider Nurse Practitioner Family | DX: Z20.822 Contact with and (suspected) exposure to COVID-19 (principal); R05.1 Acute cough | CPT/HCPCS: C9803; U0003; U0005 ==

== ENCOUNTER → 2021-06-26 14:40 | Outpatient (CLI) | payer OTHER, SELFPAY ==
[2021-06-26 16:21] LABS: Basophils # 0.1 K/mm3 (0-0.2); Basophils % 0.8 % (0.1-2.0); Eosinophils # 0.1 K/mm3 (0.0-0.4); Eosinophils % 0.8 % (0.1-12.0); Hematocrit 39.4 % (37.0-47.0); Hemoglobin 13.1 g/dL (12.2-16.2); Lymphocytes # 2.2 K/mm3 (0.7-4.5); Lymphocytes % 28.7 % (10-50); Mean Corpuscular HGB Conc 33.1 g/dL (31.8-35.4); Mean Corpuscular Hemoglobin 28.6 pg (27.0-31.2); Mean Corpuscular Volume 86.4 fl (81-99); Mean Platelet Volume 8.6 fl (7.4-10.4); Monocytes # 0.3 K/mm3 (0.1-1.0); Monocytes % 3.5 % (1.7-9.3); Neutrophils # 5.1 K/mm3 (1.8-7.8); Neutrophils % 66.1 % (37.0-80.0); Platelet Count 410 K/mm3 (142-424); Red Blood Count 4.56 M/mm3 (4.20-5.40); Red Cell Distribution Width 13.6 % (11.5-17.5); White Blood Count 7.7 K/mm3 (4.8-10.8)
[2021-06-26 16:48] LABS: Chloride 104 mmol/L (98-107)
[2021-06-26 16:49] LABS: Potassium 4.5 mmoL/L (3.5-5.1)
[2021-06-26 16:50] LABS: Sodium 136 mmol/L (136-145)
[2021-06-26 16:51] LABS: Alanine Aminotransferase 16 U/L (12-78); Anion Gap 10.5 mEq/L (5-15); Aspartate Amino Transferase 21 U/L (14-36); Blood Urea Nitrogen 14 mg/dl (7-17); Calcium 9.6 mg/dl (8.4-10.2); Carbon Dioxide 26 mmol/L (22.0-30.0); Estimated Glomerular Filt Rate 105 ml/min (>60); GFR (African American) 127 ML/MIN (>60); Glucose 91 mg/dl (74-100)
[2021-06-26 16:53] LABS: Albumin Level 3.9 g/dl (3.5-5.0); Albumin/Globulin Ratio 1.4 (1.1-1.8); Alkaline Phosphatase 48 U/L (38-126); Bilirubin,Total 0.5 mg/dl (0.2-1.3); Globulin 2.7 g/dL (1.3-3.2); Total Protein,Serum 6.6 g/dl (6.3-8.2)
[2021-06-26 17:21] LABS: Thyroid Stimulating Hormone 1.45 uIU/mL (0.465-4.68)
== END ==
PROVIDERS: Visit Provider Nurse Practitioner Family
DX: R42 Dizziness and giddiness (principal); N92.6 Irregular menstruation, unspecified
CPT/HCPCS: 36415; 80053; 84443; 85025

== ENCOUNTER 2023-06-26 18:00 | Outpatient (CLI) | payer OTHER, SELFPAY ==
[2023-06-26 18:01] LABS: Basophils % 0.5 % (0.1-2.0); Eosinophils # 0.1 K/mm3 (0.0-0.4); Eosinophils % 1.2 % (0.1-12.0); Hematocrit 42.5 % (37.0-47.0); Hemoglobin 13.7 g/dL (12.2-16.2); Lymphocytes % 39.1 % (10-50); Mean Corpuscular HGB Conc 32.1 g/dL (31.8-35.4); Mean Corpuscular Hemoglobin 27.5 pg (27.0-31.2); Mean Corpuscular Volume 85.5 fl (81-99); Mean Platelet Volume 8.4 fl (7.4-10.4); Monocytes # 0.4 K/mm3 (0.1-1.0); Monocytes % 4.5 % (1.7-9.3); Neutrophils # 4.2 K/mm3 (1.8-7.8); Neutrophils % 54.6 % (37.0-80.0); Platelet Count 394 K/mm3 (142-424); Red Blood Count 4.97 M/mm3 (4.20-5.40); Red Cell Distribution Width 14.2 % (11.5-17.5); White Blood Count 7.8 K/mm3 (4.8-10.8)
[2023-06-26 18:23] LABS: Alanine Aminotransferase 21 U/L (12-78); Albumin Level 4.3 g/dl (3.5-5.0); Albumin/Globulin Ratio 1.5 (1.1-1.8); Alkaline Phosphatase 54 U/L (38-126); Anion Gap 13.4 mEq/L (5-15); Aspartate Amino Transferase 23 U/L (14-36); Bilirubin,Total 0.3 mg/dl (0.2-1.3); Blood Urea Nitrogen 12 mg/dl (7-17); Calcium 9.8 mg/dl (8.4-10.2); Carbon Dioxide 25 mmol/L (22.0-30.0); Chloride 105 mmol/L (98-107); Estimated Glomerular Filt Rate 88 ml/min (>60); GFR (African American) 107 ML/MIN (>60); Globulin 2.8 g/dL (1.3-3.2); Glucose 90 mg/dl (74-100); Potassium 4.4 mmoL/L (3.5-5.1); Sodium 139 mmol/L (136-145); Total Protein,Serum 7.1 g/dl (6.3-8.2)
[2023-06-26 18:50] LABS: Thyroid Stimulating Hormone 2.15 uIU/mL (0.465-4.68)
[2023-06-26 19:27] LABS: HCG Qualitative, Serum Negative (Negative)
== END 2023-06-26 23:59 | disposition home or self-care (01) ==
LOC: LAB.DROPOF 06-27 08:56
PROVIDERS: PCP Nurse Practitioner Family; Visit Provider Nurse Practitioner Family
DX: R31.9 Hematuria, unspecified (principal); R10.2 Pelvic and perineal pain; N93.9 Abnormal uterine and vaginal bleeding, unspecified; R10.32 Left lower quadrant pain; B96.89 Other specified bacterial agents as the cause of diseases classified elsewhere
CPT/HCPCS: 80053; 84443; 84703; 85025; 87086

== ENCOUNTER 2023-06-30 14:27 | Emergency (ER) | payer OTHER, SELFPAY ==
--- NOTE | 2023-06-30 14:50 | ED_ITS ---
<Statement entered by Tami Mcqueen MD - 07/02/23 23:12> I was consulted by the OSMAR, and we discussed the complexity of the problems being addressed. I approved the treatment and management plan for this patient's care in the emergency department, thus performing a substantive portion of the medical decision making. Tami Mcqueen MD, ELISABETH, FACEP Discharge Plan Disposition Patient Disposition: Home, Self-Care Condition: Good Chief Complaint: Vaginal Bleeding Prescriptions Prescriptions: No Action norgestimate-ethinyl estradiol [Sprintec (28)] 0.25-35 mg-mcg tablet 1 tab PO DAILY Qty: 28 3RF Referrals Follow up/Referrals: Shira Rodriguez APRN [Primary Care Provider] - See instructions Activity Restrictions/Add. Instructions Additional Instructions/Restrictions: Please take Tylenol 800 mg every 8 hours as needed for abdominal pain and or headache. Please follow-up with PCP or return to ER for any worsening symptoms including shortness of breath bright red bleeding etc. please keep appointment with [facility] as scheduled. Clinical Impressions Clinical Impression: Vaginal bleeding, Abdominal pain Discharge ED Provider: Tami Mcqueen General Adult HPI General Chief complaint: Vaginal Bleeding Stated complaint: bleeding abd pain Time Seen by Provider: 06/30/23 14:46 History of Present Illness HPI narrative: Presents for 8 days of heavy vaginal bleeding along with abdominal pain. Patient states that she had finished her period 5 days prior and then on Saturday a week ago began having fairly heavy bleeding. She also has had some associated abdominal pain. That bleeding has continued all week and is now passing heavy clots. Patient saw her PCP on Saturday who set up an outpatient workup and the patient has an appointment with her [facility] on July 09. Patient is Ab0 Related Data Previous Rx's Medication Instructions Recorded norgestimate 0.25 mg-ethinyl 1 tab PO DAILY #28 tabs 03/14/23 estradiol 35 mcg tablet (Sprintec (28)) Allergies Allergy/AdvReac Type Severity Reaction Status Date / Time amoxicillin Allergy Unknown Verified 06/26/23 15:12 cefaclor Allergy Unknown Verified 06/26/23 15:12 Penicillins Allergy Unknown Verified 06/26/23 15:12 clavulanic acid Allergy Verified 06/26/23 15:12 [From Augmentin] [facility] Disclaimer: The information contained in this section may have been updated after the patient was seen, as this information can be updated by other users. Medical History Dyspnea Chest pain Palpitations Tachycardia History of gonorrhea 12/2016 History of chlamydia 12/2016 Surgical History No significant past surgical history Family History Grandmother Cancer maternal-colon Family/Other Cancer maternal great grandmother-breast and liver Other Diabetes Social History Smoking Status: Current every day smoker tobacco type: e-cigarettes alcohol intake: never substance use type: former substance user, heroin and IV drugs current occupational status: unemployed Travel in the last 8 weeks: None household members: family housing: house ROS Obtained: Yes Systems reviewed as appropriate & no additional complaints except as documented Physical Exam General General appearance: alert and in no apparent distress Respiratory Respiratory exam: Present normal lung sounds bilaterally Cardiovascular Cardiovascular exam: Present regular rate and normal rhythm Abdominal Exam Abdominal exam: Present soft, tenderness (In the suprapubic area) and normal bowel sounds; Absent guarding or rebound Neurological Exam Neurological exam: Present alert and oriented X3 Skin Skin exam: Present warm, dry and normal color Medical Decision Making Medical Records Medical records reviewed: Yes I reviewed the patient's medical records. Shamir Inquiry Pt receiving controlled substance: No Vital Signs: 06/30/23 14:58 06/30/23 15:00 Temperature 98.3 F Temperature Source Oral Pulse Rate 78 Pulse Rate [Left Radial] 106 H Respiratory Rate 20 Blood Pressure 133/96 H Blood Pressure [Right Arm] 173/102 H Blood Pressure Mean [Right Arm] 125 02 Sat by Pulse Oximetry 100 99 Oxygen Delivery Method Room Air Room Air Lab Data Lab results reviewed: Yes I reviewed the patient's lab results. Lab Results 06/30/23 14:43: WBC 9.1, RBC 4.76, Hgb 13.2, Hct 39.9, MCV 83.8, MCH 27.8, MCHC 33.2, RDW 14.1, Plt Count 400, MPV 8.1, Neut % (Auto) 53.1, Lymph % (Auto) 40.8, [place] % (Auto) 4.3, Eos % (Auto) 1.0, Baso % (Auto) 0.9, Neut # (Auto) 4.8, Lymph # (Auto) 3.7, [place] # (Auto) 0.4, Eos # (Auto) 0.1, Baso # (Auto) 0.1, PT 10.0 L, INR 0.92, Sodium 138, Potassium 3.6, Chloride 106, Carbon Dioxide 26, Anion Gap 9.6, BUN 12, Creatinine 0.70, Estimated Creat Clear 257, Estimated GFR 103, Est GFR ( Amer) 124, Glucose 101 H, Calcium 9.7, Magnesium 2.0, Serum HCG, Qual Negative 06/30/23 14:43 06/30/23 14:43 Orders (Tests/Meds): ED MEDICATIONS Generic Name Dose Route Start Last Admin Trade Name Freq PRN Reason Stop Dose Admin Lactated Ringer's 1,000 mls @ 999 mls/hr 06/30/23 14:52 06/30/23 14:58 Lactated Ringer's 1000 Ml Bag IV 06/30/23 15:52 999 mls/hr .Q1H1M ONE Administration Discontinued Medications Generic Name Dose Route Start Last Admin Trade Name Freq PRN Reason Stop Dose Admin Acetaminophen 1,000 mg 06/30/23 14:52 06/30/23 14:58 Acetaminophen 1,000mg/100ml Vial IV 06/30/23 14:53 1,000 mg ONCE ONE Administration Ketorolac Tromethamine 15 mg 06/30/23 14:52 06/30/23 14:58 Ketorolac 30mg/Ml Vial IV 06/30/23 14:53 15 mg ONCE ONE Administration ORDERS Category Date Time Status BMP [Basic Metabolic Panel] Stat Lab 06/30/23 14:43 Received CBC w/Auto Diff [Complete Blood Count Auto Diff] Stat Lab 06/30/23 14:52 Received HCG Qualitative, Serum Stat Lab 06/30/23 14:43 Received INR [Prothrombin Time INR] Stat Lab 06/30/23 14:43 Completed Magnesium Stat Lab 06/30/23 14:43 Received Prolactin Stat Lab 06/30/23 14:43 Received TSH [Thyroid Stimulating Hormone] Stat Lab 04/28/24 14:43 Received Medical Decision Narrative: In summary patient is a 23-year-old female G2, P2 Ab0 who presents to the emergency department for evaluation of vaginal bleeding. Patient is hemodynamically stable upon arrival, afebrile. Physical exam is remarkable for suprapubic tenderness but no rebound or guarding or rigidity. Bleeding began spontaneously without previous sexual activity. Patient denies retained tampon.. Differential diagnosis includes dysfunctional uterine bleeding versus uterine fibroid versus coagulopathy versus PCO etc. Initial workup will be conducted with hematologic labs serum . Initial interventions include crystalloid bolus Toradol and Tylenol. Initial workup reviewed by me shows that her hematologic labs are nonactionable including a stable H&H normal INR and negative test.. Upon repeat evaluation had interval improvement in her abdominal discomfort as well as her headache.. Given this and interactive discussion with the patient patient is appropriate for discharge home with recommendation is to utilize Tylenol 800 mg every 8 hours as needed for abdominal discomfort and headache. Patient to keep appointment with [facility] as scheduled. Critical Care Critical Care Time Critical Care Time: No
[2023-06-30 14:58] VITALS: BP 173/102; PULSE 106; RESP 20; TEMP 36.8; O2SAT 100; BMI 40.4
[2023-06-30] MEDS: KETOROLAC 30MG/ML VIAL 15 MG IV (14:58)
[2023-06-30] MEDS: ACETAMINOPHEN 1,000MG/100ML VIAL 1000 MG IV (14:58)
[2023-06-30] MEDS: LACTATED RINGERS 1000ML 1,000 ML 999 ML IV (14:58)
[2023-06-30 15:00] VITALS: BP 133/96; PULSE 78; O2SAT 99
[2023-06-30 15:01] LABS: Basophils # 0.1 K/mm3 (0-0.2); Basophils % 0.9 % (0.1-2.0); Eosinophils # 0.1 K/mm3 (0.0-0.4); Hematocrit 39.9 % (37.0-47.0); Hemoglobin 13.2 g/dL (12.2-16.2); Lymphocytes # 3.7 K/mm3 (0.7-4.5); Lymphocytes % 40.8 % (10-50); Mean Corpuscular HGB Conc 33.2 g/dL (31.8-35.4); Mean Corpuscular Hemoglobin 27.8 pg (27.0-31.2); Mean Corpuscular Volume 83.8 fl (81-99); Mean Platelet Volume 8.1 fl (7.4-10.4); Monocytes # 0.4 K/mm3 (0.1-1.0); Monocytes % 4.3 % (1.7-9.3); Neutrophils # 4.8 K/mm3 (1.8-7.8); Neutrophils % 53.1 % (37.0-80.0); Platelet Count 400 K/mm3 (142-424); Red Blood Count 4.76 M/mm3 (4.20-5.40); Red Cell Distribution Width 14.1 % (11.5-17.5); White Blood Count 9.1 K/mm3 (4.8-10.8)
[2023-06-30 15:03] LABS: Chloride 106 mmol/L (98-107)
[2023-06-30 15:04] LABS: Potassium 3.6 mmoL/L (3.5-5.1); Sodium 138 mmol/L (136-145)
[2023-06-30 15:05] LABS: HCG Qualitative, Serum Negative (Negative)
[2023-06-30 15:06] LABS: Blood Urea Nitrogen 12 mg/dl (7-17); Creatinine Clearance Estimated 257 mL/min (50-200); Estimated Glomerular Filt Rate 103 ml/min (>60); GFR (African American) 124 ML/MIN (>60)
[2023-06-30 15:07] LABS: Anion Gap 9.6 mEq/L (5-15); Calcium 9.7 mg/dl (8.4-10.2); Carbon Dioxide 26 mmol/L (22.0-30.0); Glucose 101 mg/dl (74-100)
[2023-06-30 15:15] LABS: INR 0.92 (0.9-1.1)
[2023-06-30 15:30] VITALS: BP 117/79; PULSE 69; O2SAT 99
[2023-06-30 15:47] VITALS: BP 177/79; PULSE 84; RESP 18; TEMP 36.8; O2SAT 98
[2023-06-30 15:49] LABS: Thyroid Stimulating Hormone 4.11 uIU/mL (0.465-4.68)
[2023-07-02 08:29] LABS: Prolactin 13.6 ng/mL (4.8-33.4)
== END 2023-06-30 15:51 | disposition home or self-care (01) ==
PROVIDERS: Physician Assistant; Emergency Provider Student in an Organized Health Care Education/Training Program; PCP Nurse Practitioner Family
DX: R10.30 Lower abdominal pain, unspecified (principal); N93.9 Abnormal uterine and vaginal bleeding, unspecified; F17.290 Nicotine dependence, other tobacco product, uncomplicated
CPT/HCPCS: 80048; 83735; 84146; 84443; 84703; 85025; 85610; 96361; 96374; 96375; 99284; J0131

== ENCOUNTER 2023-07-01 10:34 | Outpatient (CLI) | payer OTHER, SELFPAY ==
--- NOTE | 2023-07-01 10:37 | US_ITS ---
PROCEDURE: US TRANSVAGINAL CLINICAL INDICATION: pelvic pain, abnormal bleeding COMPARISON: No exams were available for comparison FINDINGS: Transvaginal sonographic images of the pelvis were obtained. UTERUS: 9.5cm x 5.3cmx 3.8 cm with a combined endometrial thickness of 7.2mm. LEFT OVARY: 4.3cmx3.1cmx2.3cm anteverted with a volume of 16.4ml. There is a follicle measuring 1.6 cm x 2.0 cm x 2.3 cm There are several other small follicles. RIGHT OVARY: 3.9 cmx 3cmx1.6 cm with a volume of 8.7ml. There are several small follicles. Both ovaries are seen and appear normal. Doppler flow to both ovaries are seen. There is no fluid in the cul-de-sac. IMPRESSION: 1. Anteverted, bulky uterus. The endometrium is normal. 2. Both ovaries are seen and appear normal. There is a 2.3 cm follicle in the left ovary. There are several small follicles in the right ovary. 3. No fluid in the cul-de-sac. Dictated by: Bowen Page MD 07/01/2023 15:50 Bowen Page MD in OV 07/01/2023 15:50
== END 2023-07-01 23:59 | disposition home or self-care (01) ==
LOC: RAD 10:34
PROVIDERS: PCP Nurse Practitioner Family; Visit Provider Nurse Practitioner Family
DX: R10.2 Pelvic and perineal pain (principal); N93.9 Abnormal uterine and vaginal bleeding, unspecified
CPT/HCPCS: 76830

== ENCOUNTER 2023-07-05 08:35 | Outpatient (CLI) | payer OTHER, SELFPAY ==
--- NOTE | 2023-07-05 08:40 | US_ITS ---
FINAL REPORT CLINICAL HISTORY: Right flank pain. FINDINGS: Sonographic images of the right upper quadrant were obtained. The pancreas is partially obscured.The liver has an unremarkable appearance. Gallbladder appears contracted. No gallstones are identified. There is no evidence of biliary ductal dilatation.The common duct measures 4mm. Limited images of the right kidney are unremarkable. IMPRESSION: Contracted gallbladder, otherwise unremarkable exam. Reviewed, Interpreted and Dictated by Kaleigh Johnson MD Transcribed by Tammy Jimenez Authenticated and [facility]
== END 2023-07-05 23:59 | disposition home or self-care (01) ==
LOC: RAD 08:36
PROVIDERS: PCP Nurse Practitioner Family; Visit Provider Nurse Practitioner Obstetrics & Gynecology
DX: R10.9 Unspecified abdominal pain (principal)
CPT/HCPCS: 76705

== ENCOUNTER 2024-05-22 11:34 | Outpatient (CLI) | payer OTHER, SELFPAY | END 2024-05-22 23:59 | disposition home or self-care (01) | LOC: LAB.DROPOF 05-25 11:35 | PROVIDERS: PCP Nurse Practitioner Family; Visit Provider Student in an Organized Health Care Education/Training Program | DX: N39.0 Urinary tract infection, site not specified (principal) | CPT/HCPCS: 87086 ==

== ENCOUNTER 2024-06-05 09:44 | Outpatient (CLI) | payer OTHER, SELFPAY ==
[2024-06-05 14:28] LABS: Basophils % 0.4 % (0.1-2.0); Eosinophils # 0.1 K/mm3 (0.0-0.4); Eosinophils % 1.3 % (0.1-12.0); Hematocrit 38.6 % (37.0-47.0); Hemoglobin 12.1 g/dL (12.2-16.2); Lymphocytes # 3.4 K/mm3 (0.7-4.5); Lymphocytes % 36.4 % (10-50); Mean Corpuscular HGB Conc 31.3 g/dL (31.8-35.4); Mean Corpuscular Hemoglobin 26.5 pg (27.0-31.2); Mean Corpuscular Volume 84.6 fl (81-99); Mean Platelet Volume 10.3 fl (7.4-10.4); Monocytes # 0.5 K/mm3 (0.1-1.0); Monocytes % 5.7 % (1.7-9.3); Neutrophils # 5.3 K/mm3 (1.8-7.8); Platelet Count 453 K/mm3 (142-424); Red Blood Count 4.56 M/mm3 (4.20-5.40); White Blood Count 9.4 K/mm3 (4.8-10.8)
[2024-06-05 15:06] LABS: Alanine Aminotransferase 23 U/L (12-78); Albumin Level 3.9 g/dl (3.5-5.0); Albumin/Globulin Ratio 1.3 (1.1-1.8); Alkaline Phosphatase 58 U/L (38-126); Amylase 65 U/L (30-110); Anion Gap 13.4 mEq/L (5-15); Aspartate Amino Transferase 25 U/L (14-36); Bilirubin,Total 0.3 mg/dl (0.2-1.3); Blood Urea Nitrogen 14 mg/dl (7-17); Calcium 8.9 mg/dl (8.4-10.2); Carbon Dioxide 26 mmol/L (22.0-30.0); Chloride 103 mmol/L (98-107); Chol/HDL Ratio 4.1 (1-3.5); Cholesterol 232 mg/dl (140-200); Estimated Glomerular Filt Rate 102 ml/min (>60); GFR (African American) 123 ML/MIN (>60); Glucose 72 mg/dl (74-100); HDL Cholesterol 56 mg/dl (40-60); Lipase 84 U/L (23-300); Potassium 4.4 mmoL/L (3.5-5.1); Sodium 138 mmol/L (136-145); Total Protein,Serum 6.9 g/dl (6.3-8.2); Triglycerides 124 mg/dl (30-150); VLDL Cholesterol 25 mg/dL (0-40)
[2024-06-05 15:19] LABS: Direct LDL Cholesterol 142.87 mg/dL (100-129)
[2024-06-05 15:22] LABS: T4 (Thyroxine) 10.2 ug/dl (5.53-11.0)
[2024-06-05 15:23] LABS: 25-OH Vitamin D, Total 20.4 ng/mL (30-100)
[2024-06-05 15:24] LABS: Free T4 (Free Thyroxine) 1.12 ng/dl (0.78-2.19)
[2024-06-05 15:36] LABS: Thyroid Stimulating Hormone 5.11 uIU/mL (0.465-4.68)
[2024-06-05 15:55] LABS: Vitamin B12 618 pg/mL (239-931)
[2024-06-05 16:07] LABS: Hemoglobin A1C 4.9 % (4.0-6.0)
[2024-06-05 16:23] LABS: Ferritin 12.5 ng/ml (6.24-137)
[2024-06-06 04:45] LABS: FSH 4.1 mIU/mL (.); LH 7.1 mIU/mL (.); Progesterone 0.2 ng/mL (.)
[2024-06-11 01:09] LABS: Free Testosterone (Direct) 0.2 pg/mL (0.0-4.2); Testosterone, Total, LC/MS 26.5 ng/dL (10.0-55.0)
== END 2024-06-05 23:59 | disposition home or self-care (01) ==
LOC: LAB.DROPOF 06-06 10:55
PROVIDERS: PCP Nurse Practitioner Family; Visit Provider Nurse Practitioner Family
DX: R94.6 Abnormal results of thyroid function studies (principal); N92.6 Irregular menstruation, unspecified; Z13.220 Encounter for screening for lipoid disorders; R10.12 Left upper quadrant pain; E66.01 Morbid (severe) obesity due to excess calories; R00.2 Palpitations
CPT/HCPCS: 80053; 80061; 82150; 82306; 82607; 82670; 82728; 83001; 83002; 83036; 83690; 84144; 84402; 84403; 84436; 84439; 84443; 84481; 85025

== ENCOUNTER 2024-06-26 08:48 | Outpatient (CLI) | payer OTHER, SELFPAY ==
[2024-06-26] MEDS: SODIUM CHLORIDE 0.9% 10ML SYR (RAD ONLY) 10 ML IV (09:00)
--- NOTE | 2024-06-26 09:00 | NM_ITS ---
FINAL REPORT CLINICAL HISTORY: abd pain COMPARISON: None FINDINGS: Sequential anterior projection images of the abdomen were obtained after the intravenous injection of 8.1 to mCi technetium 99m Choletec. There is normal uptake of radiotracer by the liver. The bile ducts are visualized by less than 5 minutes. Gallbladder activity is seen by less than 5 minutes. Bowel activity is noted immediately after CCK injection After 1 hour, 2.8 ?g of CCK was injected intravenously for calculation of gallbladder ejection fraction. The gallbladder ejection fraction is 78%, which is within normal limits. IMPRESSION: No evidence of cystic duct or bile duct obstruction. Normal gallbladder ejection fraction of 78%. Reviewed, Interpreted and Dictated by Efrain Milan MD Transcribed by Kristi Waller Authenticated and [facility]
[2024-06-26] MEDS: SINCALIDE 2.8 MCG in 0.9 % SODIUM CHLORIDE 50 ML 100 MCG IV (09:45)
[2024-06-26] MEDS: ISOTOPE CHOLETECH;1 DOSE (UP TO 15 MCI) IV (13:20)
== END 2024-06-26 23:59 | disposition home or self-care (01) ==
LOC: RAD 08:48
PROVIDERS: PCP Nurse Practitioner Family; Visit Provider Nurse Practitioner Family
DX: K82.0 Obstruction of gallbladder (principal); R10.12 Left upper quadrant pain
CPT/HCPCS: 78227; A9537; J2805